=== PATIENT | female | born 1945 | race Hispanic/Latino ===

== ENCOUNTER → 2021-12-07 | Outpatient (CLI) | payer OTHER | END | disposition home or self-care (01) | LOC: OIH 09:48 | PROVIDERS: ATTEND Internal Medicine Cardiovascular Disease | DX: R09.89 Other specified symptoms and signs involving the circulatory and respiratory systems (principal) | CPT/HCPCS: 93880 ==

== ENCOUNTER 2022-04-01 09:43 | Emergency (ER) | payer OTHER, MEDICARE ==
[~2022-04-01] VITALS: Ht 152.4 cm; Wt 77.1 kg
[2022-04-01 10:25] LABS: BASOPHILS % (AUTO) 0.3 % (0.0-5.0); EOSINOPHILS % (AUTO) 0.5 % (0.0-8.0); HEMATOCRIT 36.6 % (36-48); LYMPHOCYTES % (AUTO) 12.7 % (21.0-51.0); MEAN CORPUSCULAR HEMOGLOBIN 28.7 pg (27.0-33.0); MEAN CORPUSCULAR HGB CONC 34.7 g/dL (32.0-36.0); MEAN CORPUSCULAR VOLUME 82.6 fL (79-99); MONOCYTES % (AUTO) 6.9 % (3.0-13.0); NEUTROPHILS % (AUTO) 79.3 % (40.0-77.0); PLATELET COUNT (AUTO) 201 K/uL (130-400); RED BLOOD CELL COUNT(AUTO) 4.43 MIL/uL (4.00-5.50); RED CELL DISTRIBUTION WIDTH 12.6 % (11.0-15.5); WHITE BLOOD COUNT (AUTO) 7.6 K/uL (4.8-10.8)
[2022-04-01] MEDS ORDERED: ACETAMINOPHEN 500 MG TABLET PO ONE (10:30)
[2022-04-01] MEDS ORDERED: KETOROLAC 15MG/ML VIAL (15MG/ML) IV ONE (10:30)
[2022-04-01] MEDS ORDERED: 0.9%NACL 1000ML 1,000 ML IV ONE (10:30)
[2022-04-01 10:34] LABS: CREATININE 0.7 mg/dL (0.5-1.5); POTASSIUM 3.8 mmol/L (3.5-5.1)
[2022-04-01 10:39] LABS: ALBUMIN 3.6 g/dL (3.5-5.0); TOTAL PROTEIN, SERUM 7.2 g/dL (6.0-8.3)
[2022-04-01 10:59] LABS: APPEARANCE,URINE CLEAR (CLEAR); BILIRUBIN,URINE NEGATIVE (NEGATIVE); COLOR,URINE YELLOW (YELLOW); GLUCOSE, URINE (UA) NEGATIVE (NEGATIVE); KETONES,URINE NEGATIVE (NEGATIVE); LEUKOCYTE ESTERASE ,URINE NEGATIVE Leu/uL (NEGATIVE); OCCULT BLOOD,URINE TRACE-INTACT (NEGATIVE); PROTEIN,URINE NEGATIVE (NEGATIVE); UROBILINOGEN,URINE 0.2 mg/dL (0.2-1.0)
[2022-04-01 11:05] VITALS: BP 165/51
[2022-04-01 11:06] LABS: BACTERIA,URINE Rare /HPF (None Seen); NITRATE,URINE NEGATIVE (NEGATIVE); RBC,URINE 0-1 /HPF (0-1); SQUAMOUS EPITHELIAL CELL,UR Rare /HPF (0-2); WBC,URINE 0-1 /HPF (0-1)
[2022-04-01] MEDS ORDERED: AMPICILLIN/SULBAC 1.5GM VIAL IV ONE (11:30)
[2022-04-01] MEDS ORDERED: AMOX1TAB16 PO (11:39)
[2022-04-01] MEDS ORDERED: DICL50TA9 PO (11:40)
== END 2022-04-01 11:51 | disposition home or self-care (01) ==
LOC: EDH 09:43
DX: M54.50 Low back pain, unspecified (principal); K57.30 Diverticulosis of large intestine without perforation or abscess without bleeding; R50.9 Fever, unspecified; Z20.822 Contact with and (suspected) exposure to COVID-19; I10 Essential (primary) hypertension; Z79.1 Long term (current) use of non-steroidal anti-inflammatories (NSAID)
CPT/HCPCS: 99284; 74176; 96365; 87635; 96361; 96375; 80053; 85025; 87040 ×2; 87077; 87088; 87186; 87804 ×2; 83605; 81001; 36415; C9803; J7030; J0295; J1885; 96374

== ENCOUNTER 2022-08-13 07:38 | Emergency (ER) | payer OTHER, MEDICARE ==
[~2022-08-13] VITALS: Ht 149.9 cm; Wt 77.1 kg
[~2022-08-13 07:38] MED LIST: AMOX1TAB16 PO; DICL50TA9 PO
[2022-08-13 08:17] LABS: EOSINOPHILS % (AUTO) 7.3 % (0.0-8.0); HEMATOCRIT 36.4 % (36-48); LYMPHOCYTES % (AUTO) 37.3 % (21.0-51.0); MEAN CORPUSCULAR HEMOGLOBIN 28.3 pg (27.0-33.0); MEAN CORPUSCULAR VOLUME 85.8 fL (79-99); NEUTROPHILS % (AUTO) 45.1 % (40.0-77.0); PLATELET COUNT (AUTO) 202 K/uL (130-400); RED BLOOD CELL COUNT(AUTO) 4.24 MIL/uL (4.00-5.50)
[2022-08-13 08:33] LABS: ALANINE AMINOTRANSFERASE 18 U/L (12-78); ALBUMIN 3.3 g/dL (3.5-5.0); ASPARTATE AMINOTRANSFERASE 23 U/L (10-37); CARBON DIOXIDE 30 mmol/L (21-32); CHLORIDE 102 mmol/L (101-111); CREATININE 0.6 mg/dL (0.5-1.5); GLOMERULAR FILTR. RATE CALC 103 mL/min (>60); GLUCOSE,RANDOM 90 mg/dL (70-105); LIPASE 51 U/L (114-286); SODIUM SERUM 137 mmol/L (136-145); TOTAL PROTEIN, SERUM 6.3 g/dL (6.0-8.3); UREA NITROGEN, BLOOD 8 mg/dL (7-18)
[2022-08-13 08:37] LABS: CRP QUANTITATIVE < 2.00 mg/L (0.00-9.0)
[2022-08-13 09:23] LABS: APPEARANCE,URINE CLEAR (CLEAR); BILIRUBIN,URINE NEGATIVE (NEGATIVE); COLOR,URINE LIGHT-YELLOW (YELLOW); GLUCOSE, URINE (UA) NEGATIVE (NEGATIVE); KETONES,URINE NEGATIVE (NEGATIVE); LEUKOCYTE ESTERASE ,URINE 75 Leu/uL (NEGATIVE); NITRATE,URINE NEGATIVE (NEGATIVE); PROTEIN,URINE NEGATIVE (NEGATIVE); UROBILINOGEN,URINE 0.2 mg/dL (0.2-1.0)
[2022-08-13] MEDS ORDERED: KETOROLAC 15MG/ML VIAL (15MG/ML) ONE (09:37)
[2022-08-13] MEDS ORDERED: 0.9%NACL 1000ML 1,000 ML IV ONE (09:38)
[2022-08-13 09:44] LABS: BACTERIA,URINE RARE /HPF (None Seen); MUCUS,URINE RARE LPF (None Seen); SQUAMOUS EPITHELIAL CELL,UR RARE /HPF (0-2)
[2022-08-13] MEDS ORDERED: 0.9%NACL 1000ML 1,000 ML IV SCH (10:00)
[2022-08-13] MEDS ORDERED: KETOROLAC 15MG/ML VIAL (15MG/ML) IV SCH (10:00)
[2022-08-13] MEDS ORDERED: MAGNESIUM OXIDE 400 MG TABLET PO SCH (10:30)
[2022-08-13] MEDS ORDERED: 0.9%NACL 50ML 50 ML IV ONE (10:55)
[2022-08-13] MEDS ORDERED: CEFTRIAXONE 1G VIAL IVP SCH (11:00)
[2022-08-13 11:39] VITALS: BP 178/72
[2022-08-13] MEDS ORDERED: CEPH500B PO (12:19)
[2022-08-13] MEDS ORDERED: POLY17PO4 PO (12:19)
== END 2022-08-13 12:39 | disposition home or self-care (01) ==
LOC: EDH 07:38
DX: N30.00 Acute cystitis without hematuria (principal); M25.552 Pain in left hip; E83.42 Hypomagnesemia; K59.00 Constipation, unspecified; I10 Essential (primary) hypertension; M19.90 Unspecified osteoarthritis, unspecified site
CPT/HCPCS: 99285; 74176; 96374; 96361; 96375; 83735; 80053; 83690; 85025; 87088; 86140; 81001; 36415; J7030; J0696; J1885

== ENCOUNTER → 2023-03-01 | Outpatient (CLI) | payer OTHER, MEDICARE ==
[~2023-03-01] MED LIST changes: -AMOX1TAB16 PO; +ASPI-1197 PO; -DICL50TA9 PO; +LISI20TA24 PO; +MECL-226 PO; +OMEP40CA21 PO
== END | disposition home or self-care (01) ==
LOC: RAH 15:19
PROVIDERS: ATTEND Internal Medicine
DX: Z01.818 Encounter for other preprocedural examination (principal)
CPT/HCPCS: 71046

== ENCOUNTER → 2023-03-08 | Outpatient (CLI) | payer OTHER | END | disposition home or self-care (01) | LOC: RAH 09:41 | PROVIDERS: ATTEND Internal Medicine Cardiovascular Disease | DX: Z13.6 Encounter for screening for cardiovascular disorders (principal) | CPT/HCPCS: 75571 ==

== ENCOUNTER → 2023-04-02 | Outpatient (CLI) | payer OTHER, MEDICARE | END | disposition home or self-care (01) | LOC: RAH 14:46 | PROVIDERS: ATTEND Orthopaedic Surgery | DX: M17.11 Unilateral primary osteoarthritis, right knee (principal); M25.461 Effusion, right knee; M25.761 Osteophyte, right knee | CPT/HCPCS: 73700 ==

== ENCOUNTER → 2023-06-27 | Outpatient (CLI) | payer OTHER, MEDICARE | END | disposition home or self-care (01) | LOC: RAH 12:54 | PROVIDERS: ATTEND Orthopaedic Surgery | DX: M17.0 Bilateral primary osteoarthritis of knee (principal); M16.11 Unilateral primary osteoarthritis, right hip; M25.761 Osteophyte, right knee | CPT/HCPCS: 73700 ==

== ENCOUNTER 2025-03-28 11:43 | Emergency (ER) | payer OTHER, MEDICARE ==
[~2025-03-28] VITALS: Ht 152.4 cm; Wt 81.2 kg
[2025-03-28 12:30] VITALS: BP 145/73; PULSE 56; RESP 18; TEMP 97.9; O2SAT 98
--- NOTE | 2025-03-28 12:49 | HMCIMG ---
EXAM: CR right Wrist, 3 View. CLINICAL HISTORY: fall COMPARISON: None provided. FINDINGS: Displaced, comminuted intra-articular fracture of the distal radius with three-quarter shaft width lateral displacement of the main distal fracture fragment relative to the radial shaft. Displaced, comminuted fracture of the distal metaphysis of the ulna with one half shaft width lateral displacement of the main distal fracture fragment relative to the ulnar shaft. 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 Intercarpal, carpometacarpal, and metacarpophalangeal joints appear anatomically aligned. 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 Soft tissue edema at the wrist. IMPRESSION: 1. Displaced, comminuted intra-articular fracture of the distal radius with lateral displacement. 2. Displaced, comminuted fracture of the distal ulnar metaphysis with lateral displacement. 3. Soft tissue edema at the wrist. /[place]
--- NOTE | 2025-03-28 12:50 | NUR ---
pt moved from fast track into room er 20. report given to radha soto
--- NOTE | 2025-03-28 13:04 | ERN ---
General Chief Complaint: Hand Problem/Injury Stated Complaint: RT HAND INJURY Time Seen by MD: 11:46 Time Seen by Midlevel: 11:46 Source: patient History of Present Illness Initial Comments Patient is a 71-year-old female presenting to the emergency department following a mechanical ground level fall. Patient reports slipping and putting her right hand out to break the fall. She has a deformity to her right wrist. Denies any pain to her shoulder or elbow. Denies any direct injury to her head or loss of consciousness. Denies being on any blood thinners. Allergies: Coded Allergies: No Known Allergies (Unverified Allergy, Unknown, 04/01/22) Home Meds Active Scripts Ketorolac Tromethamine (Ketorolac Tromethamine) 10 Mg Tablet, 1 TAB PO BID for pain for 5 Days, #10 TAB 0 Refills Prov:SOLO RICHARD 03/28/25 Reported Medications Aspirin (Aspirin) 81 Mg Tab.chew, 81 MG PO DAILY, TAB.CHEW 01/25/23 Lisinopril (Lisinopril) 20 Mg Tablet, 1 TAB PO BID 01/24/23 Omeprazole (Omeprazole) 40 Mg Capsule.dr, 1 CAP PO ACBKFST 01/24/23 Meclizine HCl (Meclizine HCl) 12.5 Mg Tablet, 1 TAB PO TID PRN for DIZZINESS 01/24/23 Past Medical History Past Medical History: Hypertension Past Surgical History: None Social History Social History: Negative, Other ROS Dictation CONSTITUTIONAL: Negative except for HPI HEAD/FACE: Negative except for HPI EENT: Negative except for HPI RESPIRATORY: Negative except for HPI GASTROINTESTINAL/ABDOMINAL: Negative except for HPI GENITOURINARY: Negative except for HPI MUSCULOSKELETAL: Negative except for HPI INTEGUMENTARY: Negative except for HPI NEUROLOGICAL/PSYCH: Negative except for HPI HEMATOLOGIC/LYMPHATIC: Negative except for HPI All Systems Negative, Except as noted above. 13 point review of systems assessed and all negative except for above. Physical Exam Physical Exam Dictation Vital Signs reviewed General Appearance: Alert, oriented x 3, no acute distress, well developed, nourished. Head and Face: non-traumatic. Eyes: PERRL, pink conjunctivas, eyelid no trauma, anterior chamber with arcus senilis. Ears: Pinnas intact and no signs of trauma or erythema ear canals clear and no discharge TM no erythema Nose: No discharge, no bleeding. Oropharynx: Mouth normal, tongue pink, pharynx clear,no erythema, tonsils no exudates, no abscesses noted, mucous membrane moist Neck: Supple, non-tender, no thyromegaly, no masses, no JVD, no bruits Breast:Deferred Chest:No tenderness, no crepitus, no paradoxical movement, no retractions Lungs:Clear, well-ventilated, symmetric, no rales, no wheezing, no rhonchi, no stridor, good breath sounds bilaterally Heart: Regular rate, regular rhythm, no murmur, no gallops Vascular: no peripheral edema, Abdomen: Soft, positive bowel sounds, nondistended, no guarding, nontender, no rebound, no masses no hepatomegaly, no splenomegaly, no Santos's sign, no hernias. Rectal: Deferred Genital: Deferred Neurological: Normal speech, motor function intact, sensory function intact Musculoskeletal: Neck nontender, full range of motion, back nontender, full range of motion, Extremities: There is a deformity to the right distal radius/ulnar region with lateral deviation, radial pulses intact, there was normal capillary refill of less than 2 seconds Skin: Color pink, dry, no turgor, no rash, no lacerations, no abrasions, no contusions. Lymphatic: Deferred MDM MDM: Patient is a 71-year-old female presenting to the ER status post fall. She is a deformity to her right wrist. X-ray performed reveals a displaced right distal radial ulnar fracture. We performed a conscious sedation and successfully reduced the area. A sugar-tong splint with a placed. Orthopedic surgery was consulted and recommends splint placement and outpatient follow up. Differential diagnosis: Fracture, contusion, dislocation There are no social concerns with this patient. Prescription drug management Prescriptions will include: Toradol Medical management and examination interpretation discussions were had by me with other qualified healthcare professionals as indicated for the patient's care. ED Course Orders Procedure Category Date Status Time Wrist Comp 3+Vws Rt RAD 03/28/25 Resulted 11:51 Morphine 2mg Syg PHA 03/28/25 Complete (Morphine 2mg Syg) 12:00 Ketorolac PHA 03/28/25 Complete Tromethamine 15mg/Ml 12:00 Ketamine 50mg/Ml PHA 03/28/25 Complete Syringe (Ketamine 13:00 Midazolam Hcl (Versed) PHA 03/28/25 Complete 13:00 Wrist Comp 3+Vws Rt RAD 03/28/25 Resulted 13:23 Ketorolac PHA 03/28/25 Complete Tromethamine 15mg/Ml 15:00 Current Medications Medications (Trade) Dose Ordered Sig/[place] Route PRN Reason Start Time Stop Time Status Last Admin Dose Admin Ketamine HCl (ketaMINE 50MG/ ML SYRINGE) 100 mg ONCE ONCE IV 03/28/25 13:00 03/28/25 13:02 DC 03/28/25 13:38 Ketorolac Tromethamine (toRADol) 15 mg ONCE ONCE IM 03/28/25 12:00 03/28/25 12:05 DC 03/28/25 12:39 Ketorolac Tromethamine (toRADol) 15 mg ONCE ONCE IV 03/28/25 15:00 03/28/25 15:01 DC Midazolam HCl (Versed) 5 mg ONCE ONCE IVP 03/28/25 13:00 03/28/25 13:02 DC 03/28/25 13:38 Morphine Sulfate (morPHINE 2MG SYG) 2 mg ONCE ONCE IM 03/28/25 12:00 03/28/25 12:03 DC 03/28/25 12:42 Vital Signs Date Time Temp Pulse Resp B/P (MAP) Pulse Ox O2 Delivery O2 Flow Rate FiO2 03/28/25 12:30 97.9 56 18 145/73 98 Room Air* 0 21 03/28/25 11:45 97.9 55 20 132/65 [place] [address] IMAGING REPORT Signed PATIENT: DON ARNDT MR#: [id number] : 1945 SEX: F AGE: 79 LOCATION: [facility] ORDER 23 STATUS: REG ER REPORT#: [id number] SERVICE 22 REASON: post reduction x ray ORDERING PHYSICIAN: SOLO RICHARD PROCEDURE: WRST 3V RT - WRIST COMP 3+VWS RT EXAM: CR right Wrist, 2 View. CLINICAL HISTORY: post reduction x ray COMPARISON: None provided. FINDINGS: BONES: Postreduction of comminuted fracture distal radius/ulna. JOINTS: No dislocation. The carpal bones demonstrate normal alignment. SOFT TISSUES: The soft tissues are unremarkable. MISCELLANEOUS: Skeletal structures appear in near-anatomic alignment IMPRESSION: 1. Postreduction of comminuted fracture distal radius/ulna. 2. Skeletal structures appear in near-anatomic alignment /[place] DICTATED BY: MANUEL BENDER MD DATE: 03/28/251526 ELECTRONICALLY SIGNED BY: MANUEL BENDER MD DATE: 03/28/251526 [address] [place] [id number] IMAGING REPORT Signed PATIENT: DON ARNDT MR#: [id number] : 1945 SEX: F AGE: 79 LOCATION: [facility] ORDER 1154 STATUS: REG REPORT#: [id number] SERVICE 1151 REASON: fall ORDERING PHYSICIAN: SOLO RICHARD PROCEDURE: WRST 3V RT - WRIST COMP 3+VWS RT EXAM: CR right Wrist, 3 View. CLINICAL HISTORY: fall COMPARISON: None provided. FINDINGS: Displaced, comminuted intra-articular fracture of the distal radius with three-quarter shaft width lateral displacement of the main distal fracture fragment relative to the radial shaft. Displaced, comminuted fracture of the distal metaphysis of the ulna with one half shaft width lateral displacement of the main distal fracture fragment relative to the ulnar shaft. 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 Intercarpal, carpometacarpal, and metacarpophalangeal joints appear anatomically aligned. 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 Soft tissue edema at the wrist. IMPRESSION: 1. Displaced, comminuted intra-articular fracture of the distal radius with lateral displacement. 2. Displaced, comminuted fracture of the distal ulnar metaphysis with lateral displacement. 3. Soft tissue edema at the wrist. /[place] DICTATED BY: DAIANA SUTTON Jr., MD DATE: 03/28/25 1348 ELECTRONICALLY SIGNED BY: DAIANA SUTTON Jr., MD DATE: 03/28/25 1348 Joint Reduction Joint Reduction : Conscious Sedation: Yes Reduction Attempts: 1 Pre-Procedure NV Exam: Yes Post-Procedure NV Exam: Yes post joint reduction film: joint reduced Progress Joint reduction site: Right wrist DX & DISP Disposition: Discharge Departure Impression: Primary Impression: Fracture of right radius and ulna Condition: Stable Scripts Ketorolac Tromethamine (Ketorolac Tromethamine) 10 Mg Tablet 1 TAB PO BID for pain for 5 Days, #10 TAB 0 Refills Prov: SOLO RICHARD 03/28/25 Additional Instructions: Your initial x-ray showed a fracture of your right distal radius and ulna. We performed a conscious sedation in the emergency department and we were able to align bones. I spoke with orthopedic surgeon Dr. Montero recommends following up outpatient. He reviewed your x-rays and is agreeable with you following up outpatient. You will need to follow up alignment specialist next week further evaluation. Referrals: HUNTER BERGMAN MD (PCP) UZMA MAN MD, MARIO J MD Time of Disposition: 13:02 I have reviewed the case, and I agree with, Diagnosis and Plan I performed the substantive portion of the visit. I have reviewed and personally made and approve the management plan that is documented in the note by myself or the [facility]. I acknowledge for responsibility for the patient's management plan. SOLO RICHARD Mar 28, 2025 13:04
[2025-03-28] MEDS: MIDAZOLAM HCL 1 MG/ML 2ML VIAL IVP ONE (13:38)
--- NOTE | 2025-03-28 14:27 | HMCIMG ---
EXAM: CR right Wrist, 2 View. CLINICAL HISTORY: post reduction x ray COMPARISON: None provided. FINDINGS: BONES: Postreduction of comminuted fracture distal radius/ulna. JOINTS: No dislocation. The carpal bones demonstrate normal alignment. SOFT TISSUES: The soft tissues are unremarkable. MISCELLANEOUS: Skeletal structures appear in near-anatomic alignment IMPRESSION: 1. Postreduction of comminuted fracture distal radius/ulna. 2. Skeletal structures appear in near-anatomic alignment /[place]
[2025-03-28] MEDS ORDERED: KETO10TA2 PO (14:35)
== END 2025-03-28 15:22 | disposition home or self-care (01) ==
LOC: EDH 11:43
DX: S52.691A Other fracture of lower end of right ulna, initial encounter for closed fracture (principal); S52.601A Unspecified fracture of lower end of right ulna, initial encounter for closed fracture; I10 Essential (primary) hypertension; Z79.82 Long term (current) use of aspirin; Z79.899 Other long term (current) drug therapy; W01.0XXA Fall on same level from slipping, tripping and stumbling without subsequent striking against object, initial encounter; Y93.89 Activity, other specified; Y92.89 Other specified places as the place of occurrence of the external cause; Y99.8 Other external cause status
CPT/HCPCS: 25605; 99285; 73110 ×2; 96372 ×2; J1885; J2270; J2250; J3490; 25565